=== PATIENT | male | born 1945 | race Caucasian/White ===

== ENCOUNTER 2018-07-18 13:33 | Inpatient (IN) | payer MEDICARE, BC | END 2018-07-19 16:40 | disposition home or self-care (01) | LOC: ER 13:33 → ED HOLD 16:38 → ORTHO 4S 17:54 | DX: G45.9 Transient cerebral ischemic attack, unspecified (principal); G93.40 Encephalopathy, unspecified; K21.9 Gastro-esophageal reflux disease without esophagitis ==